=== PATIENT | female | born 2000 | race African-American/Black ===

== ENCOUNTER 2024-10-14 07:25 | Emergency (ER) | payer OTHER, SELFPAY ==
--- OUTSIDE RECORDS SUMMARY | 2024-09-29 03:30 | XMS_ITS ---
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 LMP: BC: Pap: DD, OUTSIDE B2B SALES. * Medical History: M edical History Verified. * Family History: N o Family History documented.. Objective: * Vitals: Assessment: Plan: * Treatment: * Preventive Medicine: YOUR PREVENTIVE WELLNESS PLAN: B reast Cancer Screening (Mammogram): M y last mammogram was done on: N ever, Under 40yrs. O steoporosis Screening (Bone Density Measurement): M y last bone density was done on: N ever, Under 65yr. C olorectal Cancer Screening:?Last Done Colonoscopy N ever, Under 45yr. Care Plan: * Problems: * Images: Billing Information: * Visit Code: * Procedure Codes: * Electronic signature of Laura Avendaño CNM on 10/14/2024 at 08:39 AM CDT Sign off status: Pending * Provider: Angélica Avendaño CNM Date: 0 09/29/2024 Generated for Trace serrano/Wendi/Clay on: 10/14/2024 08:39 AM CDT
--- OUTSIDE RECORDS SUMMARY | 2024-10-10 08:00 | XMS_ITS ---
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 Annual. 2. Pap. 3. Lmp. 4. Concerns. 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 * Medical History: M edical History Verified. * Surgical History: D enies Past Surgical History. * Hospitalization/Major Diagno stic Procedure: D enies Past Hospitalization. * Family History: N o Family History documented.. * Medications: N one * Allergies: N .K.D.A. Objective: * Vitals: Assessment: Plan: * Treatment: [...] * Procedure Codes: * Electronic signature of Gilma Shane CNM on 10/14/2024 at 08:39 AM CDT Sign off status: Pending * Provider: Denisha Shane CNM Date: 10/10/2024 Generated for Trace serrano/Wendi/Clay on: 10/14/2024 08:39 AM CDT
--- OUTSIDE RECORDS SUMMARY | 2024-10-10 08:30 | XMS_ITS ---
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 Medication SIG (Take, Route, Frequency, Duration) Notes Start Date End Date Status Boric Acid 600 MG 1 suppository at bed time Vaginal Once a day Active Probiotic Active Aviane 0.1-20 MG-MCG 1 tablet Orally Onc e a day; Duration: 90 days 10/10/2024 Active Albuterol Sulfate HFA 108 (90 Base) MCG/ACT Inhalation; Duration: 17 Days Active MetroGel-Vaginal Act les Vital Signs Blood pressure systolic 122 mm Hg 10/11/19 25 Blood pressure diastolic 70 mm Hg 025 Height 67 in 10/10/2024 Weight 177 lbs 10/10/2024 BMI 27.72 kg/m2 10/10/2024 Encounters Encounter Location Date Provider Diagnosis [facility] [address] [place] [address] 10/10/2024 Juan Jose Royal Recurrent vaginitis N76.0 ; Screening examination for STI Z11.3 and Encounter for initial prescription of contraceptive pills Z30.011 Assessments Encounter Date Diagnosis (ICD Code) Assessment Notes Treatment Notes Treatment Clinical Notes Section Notes 10/10/2024 Recurrent vaginitis (ICD-10 - N76.0) Expanded vaginitis panel completed today which covers common vaginitis infections and STI's ([facility]) screening. Based on results treatment plan can be recommended. We did discussed that if she continues to get BV and notes worsening symptoms after intercourse treatment for her and male partner can be completed to reduce recurrence. Would need partners name, , preferred pharmacy, and drug allergies before treatment would be prescribed (Metronidazole 500mg PO BID x 7 days, Clindamycin 2% cream twice daily for 7 days) along with treatment for her. Can purchase over the counter Boric Acid 600mg vaginally daily, but can use up to twice daily when symptoms are more bothersome (Ph-D is a brand you can look for or any brand with same dosing) Florajen or Florajen3 is an oral probiotic that can help boost good normal marsha of vagina. This is also over the counter, requires refridgeration and can be taken daily 10/10/2024 Screening examination for STI (ICD-10 - Z11.3) 10/10/2024 Encounter for initial prescription of contraceptive pills (ICD-10 - Z30.011) Contraceptive counseling including barrier methods, OCP's (combined or progesterone only), Nuvaring, the patch, DepoProvera, Nexplanon, and IUD's (Mirena and ParaGard). Risks and benefits of each discussed in detail. Pt. Is interested in starting on OCP's (combined). Denies personal history of migraines with aura, VTE/PE, CVA, HTN, liver disease, or tobacco use Counseled on initiation of oral contraceptive therapy. 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 No contraindications to initiating therapy identified at todays visit including history of migraines with aura, VTE, HTN, or breast cancer. Counseled on Thursday start during/after next menses, taking at the same time daily, effectiveness of therapy starting after 1-2 weeks of initiation, what to do if pills are missed or taken late, continued use of condoms for STI prevention and back up contraception, possible and rare risks and menstrual benefits with OCP use discussed in detail. ACHES reviewed and instructed to report if VTE symptoms occur. Plan follow up 02/2025 when she thinks she will have insurance through her work, sooner if any concerns before then 10/10/2024 Other Plan Of Treatment Medication Medication Name Sig Start Date Stop Date Notes Aviane 0.1-20 MG-MCG 1 tablet Orally Onc e a day; Duration: 90 days 10/10/2024 Treatment Notes Assessment Notes Recurrent vaginitis Expanded vaginitis panel completed today which covers common vaginitis infections and STI's ([facility]) screening. Based on results treatment plan can be recommended. We did discussed that if she continues to get BV and notes worsening symptoms after intercourse treatment for her and male partner can be completed to reduce recurrence. Would need partners name, , preferred pharmacy, and drug allergies before treatment would be prescribed (Metronidazole 500mg PO BID x 7 days, Clindamycin 2% cream twice daily for 7 days) along with treatment for her. Can purchase over the counter Boric Acid 600mg vaginally daily, but can use up to twice daily when symptoms are more bothersome (Ph-D is a brand you can look for or any brand with same dosing) Florajen or Florajen3 is an oral probiotic that can help boost good normal marsha of vagina. This is also over the counter, requires refridgeration and can be taken daily Encounter for initial prescr iption of contraceptive pills Contraceptive counseling including barrier methods, OCP's (combined or progesterone only), Nuvaring, the patch, DepoProvera, Nexplanon, and IUD's (Mirena and ParaGard). Risks and benefits of each discussed in detail. Pt. Is interested in starting on OCP's (combined). Denies personal history of migraines with aura, VTE/PE, CVA, HTN, liver disease, or tobacco use Counseled on initiation of oral contraceptive therapy. 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 No contraindications to initiating therapy identified at todays visit including history of migraines with aura, VTE, HTN, or breast cancer. Counseled on Thursday start during/after next menses, taking at the same time daily, effectiveness of therapy starting after 1-2 weeks of initiation, what to do if pills are missed or taken late, continued use of condoms for STI prevention and back up contraception, possible and rare risks and menstrual benefits with OCP use discussed in detail. ACHES reviewed and instructed to report if VTE symptoms occur. Plan follow up 02/2025 when she thinks she will have insurance through her work, sooner if any concerns before then Next Appt Details Follow Up: 4 Months, Reason: Provider Name:Juan Jose Royal, 04/10/2025 01:00:00 PM, [address] [place], [address], Progress Notes * Maye POSADADOB:2000 (24 yo F)Acc No.[id number]:10/10/2024 Patient: Maye WHITE Provider: DORIAN Salazar :2000 A ge:24 Y S ex:Female Date:10/10/2024 Address:[address] [place] [address] , [address] Pcp:No PCP None Subjective: * Chief Complaints: * 1 . STD CHECK. 2. MEDICATION Refills if possible.. 3. LMP: 10.07.2024. 4. BC: none.. 5. CONCERNS: would like BC, would like refill on metro gel, probiotic suppositories. 6. PAP- 2024. 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 * HPI: * General: Maye is a 24 year old female who presents today for evaluation of recurrent vaginitis. Also desires STI testing for GCC. Reports in the last 6 months she has had recurrent abnormal discharge that is clear to cloudy in color, minimal in amount, occasionally malodorous with no itching or burning. No symptoms right now but at end of her mesntrual cycle which tends to improve symptoms. Last did testing for BV 2 months ago through [facility]. H as 1 sexual partner at this time. 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 PMH notable for asthma. Last Pap: within the last year, Results: 2024 Was prescribed Metrogel nightly for 5 nights, vaginal boric acid and oral probiotics through [facility] online through mail testing 2 months ago. * ROS: A ll Other Systems: Review of Systems (ROS) S ee HPI for details. * Medical History: r ecurrent BV, Asthma. 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 B irth Control: N one. S exual Activity C urrently sexually active. S exually Tranmitted Disease (STD) N one. D enies H/O Abnormal Pap Smear. * OB History: G PAL G 0. * Surgical History: D enies Past Surgical History. * Hospitalization/Major Diagno stic Procedure: D enies Past Hospitalization. * Family History: Pt Denies Family Medical Hx . * Social History: D rugs/Alcohol: C affeine I ntake: 2 -3 cups per day M iscellaneous: E xercise: yes. * Medications: T aking Probiotic , Taking Boric Acid 600 MG Suppository 1 suppository at bedtime Vaginal Once a day , Taking MetroGel-Vaginal , Taking Albuterol Sulfate HFA 108 (90 Base) MCG/ACT Aerosol Solution Inhalation * Allergies: N .K.D.A. Objective: * Vitals: H t: 67 in, Wt:177lbs, BP:122/70mm Hg, BMI:27.72Index. * Examination: * General Examination: GENERAL APPEARANCE: i n no acute distress, well developed, well nourished. BREASTS: n o dimpling, no discharge, no drainage, no masses palpable bilaterally. 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 PSYCH: a lert, oriented, judgement and insight good, mood/affect full range, speech clear. Assessment: * Assessment: 1. R ecurrent vaginitis - N76.0 (Primary) 2 . S creening examination for STI - Z11.3 3 . E ncounter for initial prescription of contraceptive pills - Z30.011 Plan: * Treatment: 2. E ncounter for initial prescription of contraceptive pills Start Aviane Tablet, 0.1-20 MG-MCG, 1 tablet, Orally, Once a day, 90 days, 90 Tablet, Refills 1.? Notes: Contraceptive counseling including barrier methods, OCP's (combined or progesterone only), Nuvaring, the patch, DepoProvera, Nexplanon, and IUD's (Mirena and ParaGard). Risks and benefits of each discussed in detail. Pt. Is interested in starting on OCP's (combined). Denies personal history of migraines with aura, VTE/PE, CVA, HTN, liver disease, or tobacco use Counseled on initiation of oral contraceptive therapy. 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 No contraindications to initiating therapy identified at todays visit including history of migraines with aura, VTE, HTN, or breast cancer. Counseled on Thursday start during/after next menses, taking at the same time daily, effectiveness of therapy starting after 1-2 weeks of initiation, what to do if pills are missed or taken late, continued use of condoms for STI prevention and back up contraception, possible and rare risks and menstrual benefits with OCP use discussed in detail. ACHES reviewed and instructed to report if VTE symptoms occur. Plan follow up 02/2025 when she thinks she will have insurance through her work, sooner if any concerns before then * Procedure Codes: 1 013 Self pay no charge visit * Follow Up: 4 Months * Images: Billing Information: * Visit Code: * Procedure Codes: 1013 Self pay no charge visit. * Sign off status: Completed true * Provider: DORIAN Salazar Date: 10/10/2024 Generated for Trace serrano/Faby on: 10/14/2024 08:39 AM CDT History and Physical Notes * HPI (History of Present Illness) Category Sub-Category Detail Notes Category Not es *General Maye is a 24 year old female who presents today for evaluation of recurrent vaginitis. Also desires STI testing for GCC. Reports in the last 6 months she has had recurrent abnormal discharge that is clear to cloudy in color, minimal in amount, occasionally malodorous with no itching or burning. No symptoms right now but at end of her mesntrual cycle which tends to improve symptoms. Last did testing for BV 2 months ago through [facility]. Has 1 sexual partner at this time. 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 PMH notable for asthma. Last Pap: within the last year, Results: 2024 Was prescribed Metrogel nightly for 5 nights, vaginal boric acid and oral probiotics through [facility] online through mail testing 2 months ago. 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
[2024-10-14 07:30] VITALS: BP 112/67; PULSE 68; RESP 20; TEMP 36.4; O2SAT 100; BMI 27.4
--- NOTE | 2024-10-14 08:00 | ED.GENADULT ---
HPI - General Adult General Chief complaint: Shortness of Breath/Dyspnea Stated complaint: trouble breathing Time Seen by Provider: 10/14/24 07:47 History of Present Illness HPI narrative: Patient is a 24-year-old female who is working at [employer], new to the [address] [place] [address] with last few months. She reports that she got bit by spider sounds like a couple weeks ago as a jh in her anterior neck and since then it has felt swollen. She has asthma and has been using her albuterol inhaler she feels occasionally short of breath. She feels a little bit like a throat tightening sensation occasionally as well. She denies specific anxiety but says she might be little more anxious than normal. She has had no cough, no specific wheezing that she has noted. She has had no chest pain or other concern. Last period was 2 days ago. She has been the [place] generally very healthy. Related Data Home Medications ?Medication ?Instructions ?Recorded ?Confirmed albuterol sulfate .ROUTE 10/14/24 Previous Rx's ?Medication ?Instructions ?Recorded azithromycin 250 mg tablet See Rx Instructions PO .COMPLEX #6 10/14/24 (Zithromax Z-Sánchez) tabs prednisone 20 mg tablet 20 mg PO BID #10 tabs 10/14/24 Allergies Allergy/AdvReac Type Severity Reaction Status Date / Time No Known Drug Allergies Allergy Verified 10/14/24 07:35 Review of Systems Status of ROS: Reports: 6 or more systems reviewed and unremarkable except as noted in History and below Exam Narrative: Exam Narrative: Objective: Vital signs look unremarkable her O2 sats 100% on room air Alert or x3 No cyanosis Talks in even unlabored sentences Neck is nontender no obvious masses and she has a slight swollen spot on the lower anterior neck were she said she was bit by a spider. Lungs are clear no rales or wheezing Pulse regular Const: Vital Signs, click to edit/add: Vital Signs - 24 hr 10/14/24 07:30 Temperature 97.6 F Pulse Rate [Pulse Oximeter] 68 Respiratory Rate 20 Blood Pressure [Ri ght Upper Arm] 112/67 Pulse Oximetry 100 Oxygen Delivery Me thod Room Air Course Vital Signs Vital signs: Initial Vital Signs Temperature 97.6 F 10/14/24 07:30 Temperature Source Temporal Artery Scan 10/14/24 07:30 Pulse Rate 68 10/14/24 07:30 Respiratory Rate 20 10/14/24 07:30 Blood Pressure 112/67 10/14/24 07:30 Blood Pressure Mean 82 10/14/24 07:30 Blood Pressure Position Sitting 10/14/24 07:30 Pulse Oximetry 100 10/14/24 07:30 Oxygen Delivery Method Room Air 10/14/24 07:30 Vital Signs Temperature 97.6 F 10/14/24 07:30 Pulse Rate 68 10/14/24 07:30 Respiratory Rate 20 10/14/24 07:30 Blood Pressure 112/67 10/14/24 07:30 Pulse Oximetry 100 10/14/24 07:30 Oxygen Delivery Method Room Air 10/14/24 07:30 Temperature 97.6 F 10/14/24 07:30 Pulse Rate 68 10/14/24 07:30 Respiratory Rate 20 10/14/24 07:30 Blood Pressure 112/67 10/14/24 07:30 Pulse Oximetry 100 10/14/24 07:30 Oxygen Delivery Method Room Air 10/14/24 07:30 Medications Administered Medications: Generic Name Dose Route Start Last Admin Trade Name Freq PRN Reason Stop Dose Admin Lidocaine HCl 1 ml 10/14/24 07:56 10/14/24 08:19 Lidocaine 1% 5 Ml (Pf) 5 Ml Vial IM 1 ml DIRECTED PRN Administration Pain Discontinued Medications Generic Name Dose Route Start Last Admin Trade Name Freq PRN Reason Stop Dose Admin Ceftriaxone Sodium 500 mg 10/14/24 07:56 10/14/24 08:18 Ceftriaxone 500 Mg Vial IM 10/14/24 07:57 500 mg ONCE ONE Administration Medical Decision Making [facility] Narrative Medical decision making narrative: 24-year-old female with some mild sore throat, throat tightening sensation intermittently and recent spider bite to the neck, she has reported some fatigue as well. I think at this point she has no leg swelling edema no history of bleeding or clotting problems. Sounds like she might have a component of globus with a mild anxiety. I think because she was had that insect bite would cover with antibiotics will give her Rocephin 500 IM followed by Zithromax Z-Sánchez. Will also give her prednisone as she is asthmatic and has complained of intermittent breathing trouble although that sounds more globus like. Will give her 20 b.i.d. for 5 days. She should make an appointment the regular clinic doctor in the next 2-3 days for recheck, certainly return to the ED sooner problems concerns worsening she was comfortable this plan wished to proceed. I also check a for completeness will check a strep test and a CBC. We can call if any abnormalities in the results. Lab Data Labs: Lab Results 10/14/24 Range/Units 08:10 WBC 7.26 (4.50-11.00) K/uL RBC 4.71 (4.00-5.20) m/uL Hgb 12.9 (12.0-16.0) gm/dL Hct 39.6 (33.0-51.0) % MCV 84 (80-100) fL MCH 27 (26-34) pg MCHC 33 (32-36) gm/dL RDW Coeff of Christy 12.5 (11.5-15.5) % Plt Count 221 (140-440) K/uL Neut % (Auto) 83.2 H (42.0-72.0) % Lymph % (Auto) 13.8 L (20-44) % [place] % (Auto) 2.3 (0.0-11.0) % Eos % (Auto) 0.3 (0.0-7.0) % Baso % (Auto) 0.3 (0.0-3.0) % Neut # (Auto) 6.00 (1.7-7.0) K/uL Lymph # (Auto) 1.00 (0.90-2.90) K/uL [place] # (Auto) 0.20 (0.00-0.90) K/UL Eos # (Auto) 0.02 (0.00-0.50) K/uL Baso # (Auto) 0.02 (0.00-0.30) K/uL Abs Immat Gran (auto) 0.01 (0.00-0.30) K/uL Imm/Tot Granulo (auto) 0.1 % Discharge Plan Discharge Clinical Impression: Pharyngitis, Insect bite, Asthma Patient Disposition: Home, Self-Care Condition: Stable Additional Instructions: Antibiotics as prescribed, take the steroids as prescribed, recheck with regular doctor in the next 2-3 days if needed, usual be rule Heller as needed. Activity Level: Light activity Discharge Diet: Regular Prescriptions: New azithromycin [Zithromax Z-Sánchez] 250 mg tablet See Rx Instructions .ROUTE .COMPLEX Qty: 6 0RF Rx Instructions: For 250 mg dose pack: take 500 mg today (day 1), then 250 mg for 4 days (days 2-5) prednisone 20 mg tablet 20 mg PO BID Qty: 10 0RF No Action albuterol sulfate .ROUTE Stand Alone Forms: [facility] Info Instructions
[2024-10-14 08:18] LABS: Hematocrit 39.6 % (33.0-51.0); Hemoglobin* 12.9 gm/dL (12.0-16.0); Immature Granulocytes Abs Auto 0.01 K/uL (0.00-0.30); Immature Granulocytes Pct Auto 0.1 %; Lymphocytes Absolute Auto 1.00 K/uL (0.90-2.90); Mean Corpuscular HGB Conc 33 gm/dL (32-36); Mean Corpuscular Hemoglobin 27 pg (26-34); Mean Corpuscular Volume 84 fL (80-100); RDW Coefficient of Variation % 12.5 % (11.5-15.5); Red Blood Count 4.71 m/uL (4.00-5.20); White Blood Count* 7.26 K/uL (4.50-11.00)
[2024-10-14] MEDS: cefTRIAXone 500 MG VIAL IM (08:18)
[2024-10-14] MEDS: LIDOCAINE 1% 5 ml (pf) 5 ML VIAL 1 ML IM (08:19)
[2024-10-14 08:21] LABS: Slide Review Reflex No
--- OUTSIDE RECORDS SUMMARY | 2024-10-14 08:39 | XMS_ITS | Patient Health Record ---
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 Name Role Phone None, No PCP Primary Care Provider Juan Jose Johnson Unavailable [phone] Marcella Avendaño Unavailable [phone] Gilma Shane Unavailable [phone] Allergies No Known Allergies Reason For Referral No Information Medications Medication SIG (Take, Route, Frequency, Duration) Notes Start Date End Date Status Boric Acid 600 MG 1 suppository at bed time Vaginal Once a day Active Probiotic Active Albuterol Sulfate HFA 108 (90 Base) MCG/ACT Inhalation; Duration: 17 Days Active MetroGel-Vaginal Act les Aviane 0.1-20 MG-MCG 1 tablet Orally Onc e a day; Duration: 90 days 10/10/2024 Active Vital Signs Blood pressure diastolic 70 mm Hg 10/10/2024 Height 67 in 10/10/2024 Blood pressure systolic 122 mm Hg 10/10/2024 Weight 177 lbs 10/10/2024 BMI 27.72 kg/m2 10/10/2024 Encounters Encounter Location Date Provider Diagnosis [address] [address] 10/10/2024 Juan Jose Royal Recurrent vaginitis N76.0 ; Screening examination for STI Z11.3 and Encounter for initial prescription of contraceptive pills Z30.[address] [address] 10/10/2024 Juan Jose Royal Encounter for initia l prescription of contraceptive pills Z30.[address] [address] 10/11/2024 Juan Jose Royal [address] [place] [address] 10/10/2024 Juan Jose Royal Encounter for initia l prescription of contraceptive pills Z30.011 [facility] [id number] [place] [address] 10/10/2024 Juan Jose Royal Encounter for initia l prescription of contraceptive pills Z30.011 Assessments Encounter Date Diagnosis (ICD Code) Assessment Notes Treatment Notes Treatment Clinical Notes Section Notes 10/10/2024 Recurrent vaginitis (ICD-10 - N76.0) Expanded vaginitis panel completed today which covers common vaginitis infections and STI's ([facility]) screening. 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 No contraindications to initiating therapy identified [...] before then 10/10/2024 Other Plan Of Treatment Next Appt Details Provider Name:Juan Jose Royal, 04/10/2025 01:00:00 PM, [address] [place], [address], Insurance Providers Payer Name Payer Address Payer Phone Subscriber Number Group Number Insured Name Patient Relationship to Insured Coverage Start Date Coverage End Date [employer] (Ins Bill) [address] [address] [place], [place] [id number] 20 Maye Posada Self - patient is the insured Self Pay [address] [facility] [address] [id number] Maye Posada Self - patient is the insured Medical (General) History Medical History History ICD Code recurrent BV asthma
[2024-10-14 08:43] LABS: Strep A DNA Probe* NOT DETECTED (Not Detectd)
== END 2024-10-14 08:48 | disposition home or self-care (01) ==
LOC: ED 08:37
PROVIDERS: Emergency Provider Family Medicine
DX: J02.9 Acute pharyngitis, unspecified (principal); J45.909 Unspecified asthma, uncomplicated; W57.XXXA Bitten or stung by nonvenomous insect and other nonvenomous arthropods, initial encounter
CPT/HCPCS: 36415; 85025; 87651; 96372; 99284; J0696